=== PATIENT | male | born 1955 | race Caucasian/White ===

== ENCOUNTER 2020-12-20 07:00 | Day surgery (SDC) | payer BC, SELFPAY ==
[2020-12-20] MEDS: Lactated Ringers 1,000 ML 100 ML IV (07:34)
[2020-12-20 07:35] VITALS: BP 139/77; PULSE 72; RESP 16; TEMP 35.9; O2SAT 100; BMI 19.8
--- NOTE | 2020-12-20 07:47 | H&P.OPEN ---
HPI - General HPI Narrative WAYNE MCKINLEY, is a 65 M who presents for screening colonoscopy. The patient has never had a colonoscopy in the past. The patient reports no family history of colon cancer and he denies any abdominal pain or blood in his stool. [facility] Medical History (Updated 12/20/20 @ 07:[address] Arsen Kim MD) Former smoker Marijuana use Wears contact lenses Wears dentures Home Medications sildenafil 50 mg PO DAILY PRN 12/16/20 [History Last Taken Unknown] trazodone 50 mg PO DAILY 12/16/20 [History Last Taken Unknown] Allergy/AdvReac Type Severity Reaction Status Date / Time No Known Allergies Allergy Verified 12/16/20 08:34 Surgical History (Updated 12/16/20 @ 08:43 by Mellisa Tate) History of foot surgery History of hernia repair Social History Smoking Status: Former smoker Past Medical/Surgical History Planned Operation Planned Operative Procedure/s: COLONOSCOPY Previous Hospitalizations/Surgeries HX Hospitalizations: No Any Problems With Anesthesia: No You/Your Family Experience Fever (Hyperthermia) With Anes: No Cholinesterase deficiency: No Cardiovascular Hx Hypertension: No Respiratory Hx Sleep Apnea: No Hx Respiratory Tract Infection/Cold (presently): No Do You Snore Loudly (louder than talking or can be heard): No Do You Often Feel Tired/ Fatigued/ Sleepy Dring Daytime?: No Has Anyone Observed You Stop Breathing During Sleep?: No Result (for STOP score): Negative Smoking Status: Former smoker Neurological Does patient have nerve stimulator: No Miscellaneous Recent Exposure to Contagious Disease: No Allergies No Known Allergies Allergy (Verified 12/16/20 08:34) Discharge Is Pt Admitted From a Skilled Nursing, or a Shelter: No Who Could Help: FRIEND After D/C, Where Do you Plan to Go: Return Home Vital Signs Vital Signs Vital Signs: 12/20/20 07:31 12/20/20 07:35 Temperature 96.6 F L Temperature Source Temporal Pulse Rate 72 Respiratory Rate 16 Respiratory Pattern Normal Blood Pressure 139/77 H Blood Pressure Mean 97 Blood Pressure Source Monitor Blood Pressure Position Semi-Fowlers Blood Pressure Location Left Arm Pulse Ox 100 Oxygen Delivery Method Room Air Weight Weight: 138 lb 3.677 oz Body Mass Index (BMI) 19.8 Physical Exam Const alert and oriented x3 Resp normal respiratory effort and normal air movement Cardio regular rate and regular rhythm GI soft to palpation, non-tender and non-distended Assessment & Plan Assessment/Plan (1) Screen for colon cancer: PLAN: I explained endoscopy in detail to the patient. I explained the risks including but not limited to stroke or heart attack with anesthesia, perforation of the GI tract, bleeding, infection. I explained that any of these could necessitate further emergency surgery. The patient understands and all questions were answered sufficiently. The patient wishes to proceed with procedure. Arsen Kim MD Pager: [facility] [address] [place] [address], [address] [place] [address] Office: Surgery Risks - Colonoscopy Risks Include but are not Limited To: Risks include but are not limited to: Bleeding, perforation requiring further surgery, inability to complete colonoscopy requiring barium enema.
--- NOTE | 2020-12-20 08:00 | COLBX_PTH ---
PATIENT: WAYNE MCKINLEY LOC: EN U#:[id number] AGE/SX: 65/M ROOM: RE12/20/[address]: Dr. Arsen Kim MD : 1955 BED: DIS: 12/20/2020 SPEC #: [id number] RECD: 12/20/20 13:52 STATUS: MAX MARILEE #: [id number] SUZE: 12/20/20 08:[address]: Arsen Kim DEPT: SURGICAL PATHOLOGY RECD BY: Laurence Manning ENTERED: 12/20/20 14:03 SP TYPE: COLON BX OTHR DR: Jorge Mcleod, WEBSITE DEVELOPER-C Tissues: A - Sigmoid colon biopsy B - Rectum, NOS Procedures: Surgery Specimen Level IV HEADER OPERATION: Colonoscopy, open access (MAC) PRE-OP DIAGNOSIS: Screen for colon cancer TISSUE SUBMITTED: A. Sigmoid polyp, B. Rectal polyps (x2) biopsy #1, snare #2 MICROSCOPIC DIAGNOSIS A. Sigmoid colon polyp, biopsy: Tubular adenoma with high-grade dysplasia. B. Rectal polyps, biopsy: Tubular adenoma. Hyperplastic polyp. MICROSCOPIC DESCRIPTION Slides are reviewed. GROSS DESCRIPTION A. Received is one container labeled with the patient name and designated sigmoid polyp . The specimen consists of one irregular fragment of light lange soft tissue that measures 1.3 x 0.8 x 0.5cm. The specimen is bisected and totally submitted in one cassette. B. Received is one container labeled with the patient name and designated . Rectal polyps x2. The specimen consists of two irregular fragments of light lange soft tissue that together measures 0.5 x 0.5 x 0.1cm. The specimen is totally submitted in one cassette. /AM;am 12/20/20 TC:0 CPT:37071j6
--- NOTE | 2020-12-20 08:28 | OP.COLON_ITS ---
Patient Name: Dawson Veliz Procedure Date: 12/20/2020 7:54 AM Date of : 1955 Age: 65 Procedure: Colonoscopy Indications: Screening for colorectal malignant neoplasm Providers: Arsen Kim MD Medicines: Monitored Anesthesia Care Patient Profile: This is a 65 year old male. Refer to note in patient chart for documentation of history and physical. Last Colonoscopy: none. The patient's first colonoscopy is today. Complications: No immediate complications. Estimated blood loss: Minimal. Procedure: Pre-Anesthesia Assessment: - Prior to the procedure, a History and Physical was performed, and patient medications and allergies were reviewed. The patient's tolerance of previous anesthesia was also reviewed. The risks and benefits of the procedure and the sedation options and risks were discussed with the patient. All questions were answered, and informed consent was obtained. Prior Anticoagulants: The patient has taken no previous anticoagulant or antiplatelet agents. After reviewing the risks and benefits, the patient was deemed in satisfactory condition to undergo the procedure. After I obtained informed consent, the scope was passed under direct vision. Throughout the procedure, the patient's blood pressure, pulse, and oxygen saturations were monitored continuously. The Colonoscope was introduced through the anus and advanced to the cecum, identified by appendiceal orifice and ileocecal valve. The colonoscopy was performed without difficulty. The patient tolerated the procedure well. The quality of the bowel preparation was good. Scope In: 8:03:09 AM Scope Withdrawal Time 0 hours 7 minutes 10 seconds Scope Out: 8:25:11 AM Total Procedure Duration Time 0 hours 22 minutes 2 seconds Findings: Three polyps were found in the rectum and sigmoid colon. These polyps were removed with a hot snare. Resection and retrieval were complete. For location marking, one hemostatic clip was successfully placed. There was no bleeding at the end of the procedure. The exam was otherwise without abnormality on direct and retroflexion views. Impression: - Three polyps in the rectum and in the sigmoid colon, removed with a hot snare. Resected and retrieved. Clip was placed. - The examination was otherwise normal on direct and retroflexion views. Recommendation: - Discharge patient to home. - Resume previous diet. - Continue present medications. - Await pathology results. - Repeat colonoscopy for surveillance based on pathology results. Procedure Code(s): --- Professional --- 41472, Colonoscopy, flexible; with removal of tumor(s), polyp(s), or other lesion(s) by snare technique 53581, Unlisted procedure, rectum 54034, Unlisted procedure, colon Diagnosis Code(s): --- Professional --- Z12.11, Encounter for screening for malignant neoplasm of colon K62.1, Rectal polyp D12.5, Benign neoplasm of sigmoid colon CPT copyright 2017 [employer]. All rights reserved. The codes documented in this report are preliminary and upon master at arms review may be revised to meet current compliance requirements. Arsen Kim MD 12/20/2020 8:28:04 AM This report has been signed electronically. Number of Addenda: 0 Note Initiated On: 12/20/2020 7:54 AM
[2020-12-20 08:30] VITALS: BP 111/67; BP 139/77; PULSE 60; RESP 14; TEMP 36.2; O2SAT 100
[2020-12-20 08:35] VITALS: BP 111/79; BP 139/77; PULSE 60; RESP 16; O2SAT 100
[2020-12-20 08:40] VITALS: BP 116/73; BP 139/77; PULSE 58; RESP 16; O2SAT 100
[2020-12-20 08:46] VITALS: BP 121/77; BP 139/77; PULSE 56; RESP 16; TEMP 36.1; O2SAT 100
[2020-12-20 08:48] VITALS: BP 139/77
== END 2020-12-20 09:10 | disposition home or self-care (01) ==
LOC: EN 07:07 → AC 07:10
PROVIDERS: PCP Nurse Practitioner Primary Care; Referring Provider Surgery; Visit Provider Surgery
PROC: 0DJD8ZZ Inspection of Lower Intestinal Tract, Via Natural or Artificial Opening Endoscopic (ICD-10-PCS; CPT 45378; principal; 2020-12-20 07:55)
DX: Z12.11 Encounter for screening for malignant neoplasm of colon (principal); D12.7 Benign neoplasm of rectosigmoid junction; K62.1 Rectal polyp; Z87.891 Personal history of nicotine dependence
CPT/HCPCS: 45385; 88305; J7120; J2405